=== PATIENT | female | born 1970 | race Caucasian/White ===

== ENCOUNTER → 2016-12-12 | Outpatient (CLI) | payer BC, OTHER ==
[~2016-12-12] MED LIST: BUPR-173 PO; CYCL5TAB PO; HYDR-3144 PO; HYDR200T PO; LEVO100T5 PO; LEVO125T PO; LORA-446 PO; ONDA4TAB10 PO; SUMA6VIA2 SC; WELLBUTRIN PO; [UNRECOGNIZED DRUG - CODE] PO
[2016-12-12 09:38] LABS: BLOOD UREA NITROGEN 13 mg/dL (7-18)
[2016-12-12 09:41] LABS: ASPARTATE AMINO TRANSFERASE 16 U/L (15-37)
== END | disposition home or self-care (01) ==
LOC: STAR 08:15
PROVIDERS: ATTEND Obstetrics & Gynecology
DX: Z01.818 Encounter for other preprocedural examination (principal); R10.2 Pelvic and perineal pain; N93.8 Other specified abnormal uterine and vaginal bleeding
CPT/HCPCS: 36415; 80053; 81003; 85025

== ENCOUNTER 2016-12-18 05:47 | Day surgery (SDC) | payer BC, OTHER ==
[2016-12-12 08:45] VITALS: BP 113/75
[~2016-12-18] VITALS: Ht 160 cm; Wt 56.0 kg
[2016-12-18] MEDS ORDERED: LACTATED RINGERS 1,000 ML IV SCH (06:40)
[2016-12-18] MEDS ORDERED: LIDOCAINE 1%, 2ML ONE (06:44)
[2016-12-18] MEDS ORDERED: FLUORESCEIN SODIUM 500 MG/5 ML ONE (06:53)
[2016-12-18] MEDS ORDERED: BUPIVACAINE/PF-EPI 0.25% 1:200K ONE (06:54)
[2016-12-18] MEDS ORDERED: LIDOCAINE 1%, 2ML SQ PRN (07:00)
[2016-12-18] MEDS ORDERED: MIDAZOLAM 1 MG/ML, 2ML ONE (07:15)
[2016-12-18] MEDS ORDERED: HYDROmorphone 2 MG/ML, 1ML ONE ×2 (07:16→09:35)
[2016-12-18] MEDS ORDERED: SCOPOLAMINE PATCH, 1.5MG PATCH.TD72 TD ONE (07:16)
[2016-12-18 07:17] LABS: HCG UR OBC PASS
[2016-12-18] MEDS ORDERED: ROCURONIUM 10 MG/ML ONE (07:31)
[2016-12-18] MEDS ORDERED: GLYCOPYRROLATE 0.2MG/1ML ONE (07:31)
[2016-12-18] MEDS ORDERED: ONDANSETRON 2MG/ML, 2ML ONE (07:31)
[2016-12-18] MEDS ORDERED: NEOSTIGMINE 1 MG/ML, 10ML ONE (07:31)
[2016-12-18] MEDS ORDERED: DEXAMETHASONE 4 MG/ML, 5ML ONE (07:31)
[2016-12-18] MEDS ORDERED: EPHEDRINE 50 MG/ML, 1ML ONE (07:31)
[2016-12-18] MEDS ORDERED: CEFOTETAN 2 GM ONE (07:31)
[2016-12-18] MEDS ORDERED: KETOROLAC 30 MG/1 ML ONE (07:31)
[2016-12-18] MEDS ORDERED: METOCLOPRAMIDE 5 MG/ML, 2ML ONE (07:31)
[2016-12-18] MEDS ORDERED: MIDAZOLAM 1 MG/ML, 2ML IV PRN (08:00)
[2016-12-18] MEDS ORDERED: OXYcodone 5 MG/5 ML ORAL.SOL UDC PO PRN (08:00)
[2016-12-18] MEDS ORDERED: hydrALAzine 20 MG/ML, 1ML IV PRN (08:00)
[2016-12-18] MEDS ORDERED: LABETALOL 5MG/ML, 20ML IV PRN (08:00)
[2016-12-18] MEDS ORDERED: HALOPERIDOL 5 MG/ML IV PRN (08:00)
[2016-12-18] MEDS ORDERED: ACETAMINOPHEN 325 MG TABLET PO PRN (08:00)
[2016-12-18] MEDS ORDERED: ONDANSETRON 2MG/ML, 2ML IVPush PRN (08:00)
[2016-12-18] MEDS ORDERED: MEPERIDINE/PF 25MG/0.5ML IVPush PRN (08:00)
[2016-12-18] MEDS ORDERED: ACETAMINOPHEN 325 MG TABLET ONE (09:17)
[2016-12-18] MEDS ORDERED: OXYcodone 5 MG/5 ML ORAL.SOL UDC ONE (09:17)
[2016-12-18] MEDS: HYDROmorphone 1 MG/ML, 1ML IV PRN ×2 (09:42→10:00)
[2016-12-18 13:37] LABS: HEMOGLOBIN 12.3 g/dL (11.7-16.4)
[2016-12-18] MEDS ORDERED: OXYcodone/APAP 5/325MG TABLET ONE (15:03)
[2016-12-18] MEDS ORDERED: OXYcodone/APAP 5/325MG TABLET PO PRN (15:30)
== END 2016-12-18 15:55 ==
LOC: OUT 05:47
PROVIDERS: ATTEND Obstetrics & Gynecology
DX: N93.8 Other specified abnormal uterine and vaginal bleeding (principal); D25.9 Leiomyoma of uterus, unspecified; E03.9 Hypothyroidism, unspecified; Z98.51 Tubal ligation status
CPT/HCPCS: 36415; 52000; 58571; 81025; 85014; 85018; 86850; 86900; 88307; J1100; J1170; J1885; J2405; J2710; J2765; J3490; J7120; J2250; S0074